=== PATIENT | male | born 1950 | race Caucasian/White ===

== ENCOUNTER 2020-05-12 12:13 | Emergency (ER) | payer OTHER ==
[2020-05-12] MEDS ORDERED: LIDOCAINE 1% MPF 30 ML VIAL ONE (12:38)
[2020-05-12] MEDS ORDERED: MIDAZOLAM HCL 2 MG/2 ML INJ ONE (13:06)
[2020-05-12] MEDS ORDERED: CEFAZOLIN/SWI 1gm 2 GM/20 ML SYR ONE (13:07)
[2020-05-12] MEDS ORDERED: HYDROMORPHONE HCL 1 MG/ML INJ ONE (13:07)
[2020-05-12] MEDS ORDERED: ETOMIDATE 20 MG/10 ML VIAL IV ONE (13:07)
[2020-05-12] MEDS ORDERED: ONDANSETRON 4 MG/2 ML VIAL ONE (13:07)
--- NOTE | 2020-05-12 13:09 | RAD REPORT ---
EXAM DESCRIPTION: RAD - Hand Right 3 View - 05/12/2020 1:02 pm CLINICAL HISTORY: Right hand pain status post injury FINDINGS: A nail lies within the soft tissues adjacent to first metacarpal and first proximal phalan x No fracture or dislocation is seen.
[2020-05-12 13:11] LABS: Basophils % 0.7 % (0-1.3); Hematocrit 36.2 % (39.6-49.0); Lymphocytes % 18.5 % (15.3-44.8); RBC Red Blood Cell Count 3.98 M/uL (4.33-5.43)
[2020-05-12 13:29] LABS: Bilirubin Total 0.5 mg/dL (0.2-1.0); Potassium 3.9 mmol/L (3.5-5.1); Protein, Total 7.3 g/dL (6.4-8.2)
[2020-05-12] MEDS ORDERED: TETANUS & DIPHTHERIA TOX,ADULT 0.5 ML VIAL ONE (13:30)
[2020-05-12] MEDS ORDERED: NA CHLORIDE 0.9% 1,000 ML ONE (13:30)
--- NOTE | 2020-05-12 13:47 | EDPHYS ---
Physician Documentation [facility] Name: Steven Woods Age: 70 yrs Sex: Male : 1950 Arrival Date: 05/12/2020 Time: 12:17 Bed 15 Private MD: ED Physician Aurelio Spence HPI: 05/12 13:03 This 70 yrs old Male presents to ER via Ambulatory with complaints of Nail in lucia hand. 13:03 The patient or guardian reports decreased range of motion, deformity, pain, a puncture lucia wound. The complaints affect the right hand diffusely. Context: The problem was sustained at home, at a nail gun dc into hand. Onset: The symptoms/episode began/occurred just prior to arrival. Modifying factors: The symptoms are alleviated by elevation, holding still, the symptoms are aggravated by movement, dependent position. Associated signs and symptoms: Pertinent positives: pain, none. Severity of symptoms: At their worst the symptoms were moderate, in the emergency department the symptoms are unchanged. The patient has not experienced similar symptoms in the past. Historical: - Allergies: 12:21 Codeine; ll1 - PMHx: 12:21 Diabetes - IDDM; Hypertension; ll1 - PSHx: 12:21 None; ll1 - Immunization history:: Flu vaccine is not up to date. - Social history:: Smoking status: Patient denies any tobacco usage or history of. - Family history:: not pertinent. ROS: 13:03 Constitutional: Negative for fever, chills, and weight loss, Eyes: Negative for injury, lucia pain, redness, and discharge, ENT: Negative for injury, pain, and discharge, Neck: Negative for injury, pain, and swelling, Cardiovascular: Negative for chest pain, palpitations, and edema, Respiratory: Negative for shortness of breath, cough, wheezing, and pleuritic chest pain, Abdomen/GI: Negative for abdominal pain, nausea, vomiting, diarrhea, and constipation, Back: Negative for injury and pain, : Negative for injury, bleeding, discharge, and swelling, Skin: Negative for injury, rash, and discoloration, Neuro: Negative for headache, weakness, numbness, tingling, and seizure, Psych: Negative for depression, anxiety, suicide ideation, homicidal ideation, and hallucinations, Allergy/Immunology: Negative for hives, rash, and allergies, Endocrine: Negative for neck swelling, polydipsia, polyuria, polyphagia, and marked weight changes, Hematologic/Lymphatic: Negative for swollen nodes, abnormal bleeding, and unusual bruising. 13:03 MS/extremity: Positive for decreased range of motion, deformity, pain, of the dorsal aspect of proximal phalanx of right thumb, palmar aspect of proximal phalanx of right thumb and Right first web space. Exam: 13:03 Constitutional: This is a well developed, well nourished patient who is awake, alert, lucia and in no acute distress. Head/Face: Normocephalic, atraumatic. Eyes: Pupils equal round and reactive to light, extra-ocular motions intact. Lids and lashes normal. Conjunctiva and sclera are non-icteric and not injected. Cornea within normal limits. Periorbital areas with no swelling, redness, or edema. ENT: Nares patent. No nasal discharge, no septal abnormalities noted. Tympanic membranes are normal and external auditory canals are clear. Oropharynx with no redness, swelling, or masses, exudates, or evidence of obstruction, uvula midline. Mucous membranes moist. Neck: Trachea midline, no thyromegaly or masses palpated, and no cervical lymphadenopathy. Supple, full range of motion without nuchal rigidity, or vertebral point tenderness. No Meningismus. Chest/axilla: Normal chest wall appearance and motion. Nontender with no deformity. No lesions are appreciated. Cardiovascular: Regular rate and rhythm with a normal S1 and S2. No gallops, murmurs, or rubs. Normal PMI, no JVD. No pulse deficits. Respiratory: Lungs have equal breath sounds bilaterally, clear to auscultation and percussion. No rales, rhonchi or wheezes noted. No increased work of breathing, no retractions or nasal flaring. Abdomen/GI: Soft, non-tender, with normal bowel sounds. No distension or tympany. No guarding or rebound. No evidence of tenderness throughout. Back: No spinal tenderness. No costovertebral tenderness. Full range of motion. Skin: Warm, dry with normal turgor. Normal color with no rashes, no lesions, and no evidence of cellulitis. Neuro: Awake and alert, GCS 15, oriented to person, place, time, and situation. Cranial nerves II-XII grossly intact. Motor strength 5/5 in all extremities. Sensory grossly intact. Cerebellar exam normal. Normal gait. Psych: Awake, alert, with orientation to person, place and time. Behavior, mood, and affect are within normal limits. 13:03 Musculoskeletal/extremity: Extremities: noted in the lateral aspect of right hand, palmar aspect of proximal phalanx of right thumb and Right first web space: decreased ROM, deformity, pain, ROM: limited active range of motion, limited passive range of motion, limited active range of motion due to pain, limited passive range of motion due to pain, Circulation is intact in all extremities. Sensation intact. Compartment Syndrome exam of affected extremity: is normal. DVT Exam: no swelling, negative Homans' sign noted on exam, no appreciated bluish discoloration, no erythema, no increased warmth, pain, tenderness. Vital Signs: 12:21 BP 125 / 87; Pulse 70; Resp 18; Temp 97.2; Pulse Ox 97% ; Weight 109.77 kg; Height 6 ll1 ft. 0 in. (182.88 cm); Pain 8/10; 14:09 BP 115 / 75; Pulse 54; Resp 14 S; Pulse Ox 100% on R/A; jd3 12:21 Body Mass Index 32.82 (109.77 kg, 182.88 cm) ll1 Procedures: 13:45 Foreign Body Removal: a nail, from the right right hand and dorsal aspect of proximal lucia phalanx of right thumb, by using a hemostat, incising to remove, using lidocaine 1% without epinephrine to anesthesize the area, Dressinx4s were used to dress the wound, The patient tolerated the removal well. MDM: 12:24 Patient medically screened. lucia 13:07 Differential diagnosis: open fracture. Data reviewed: vital signs, nurses notes, lab lucia test result(s), radiologic studies, plain films. Data interpreted: security monitor: rate is 70 beats/min, rhythm is regular, Pulse oximetry: on room air is 97 %. Test interpretation: by ED physician or midlevel provider: plain radiologic studies. Counseling: I had a detailed discussion with the patient and/or guardian regarding: the historical points, exam findings, and any diagnostic results supporting the discharge/admit diagnosis, lab results, radiology results. 05/12 12:45 Order name: CBC with Diff; Complete Time: 13:39 lucia 05/12 12:45 Order name: Comprehensive Metabolic Panel; Complete Time: 13:39 lucia 05/12 12:45 Order name: Hand Right 3 View XRAY; Complete Time: 13:39 lucia 05/12 13:24 Order name: Hand Right 3 View XRAY 05/12 12:47 Order name: NPO; Complete Time: 12:54 lucia 05/12 13:45 Order name: Wound Care; Complete Time: 14:29 lucia Administered Medications: 13:00 Drug: Dilaudid 1 mg Route: IVP; Site: left antecubital; hb 14:00 Follow up: Response: No adverse reaction; RASS: Alert and Calm (0) jd3 13:00 Drug: Zofran (Ondansetron) 4 mg Route: IVP; Site: left antecubital; hb 14:00 Follow up: Response: No adverse reaction jd3 13:00 Drug: Ancef 2 grams Route: IVPB; Infused Over: 30 mins; Site: left antecubital; hb 14:00 Follow up: Response: No adverse reaction; IV Status: Completed infusion jd3 13:16 Drug: Versed 2 mg Route: IVP; Site: left antecubital; jd3 14:00 Follow up: Response: No adverse reaction jd3 13:18 Drug: Versed 2 mg Route: IVP; Site: left antecubital; jd3 14:00 Follow up: Response: No adverse reaction jd3 13:32 Not Given (Physician Discretion): Etomidate 10 mg IVP once jd3 13:33 Not Given (Physician Discretion): Etomidate 10 mg IVP once; hold jd3 13:43 Drug: Tetanus-Diphtheria Toxoid Adult 0.5 ml {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 Exp: jd3 09/22/2022. Lot #: [id number]. } Route: IM; Site: right deltoid; 14:40 Follow up: Response: No adverse reaction jd3 13:58 Drug: Clindamycin 900 mg Route: IVPB; Infused Over: 30 mins; Site: left antecubital; jd3 14:48 Follow up: Response: No adverse reaction; IV Status: Completed infusion; IV Intake: [id number] 14:29 Drug: Neosporin Ointment 1 application Route: Topical; Site: affected area; jd3 Disposition: 05/12/20 13:46 Discharged to Home. Impression: Puncture wound with foreign body of right hand, Puncture wound without foreign body of right hand, Type 1 diabetes mellitus. - Condition is Stable. - Discharge Instructions: Laceration Care, Adult, Puncture Wound, Laceration Care, Adult, [id number], Puncture Wound, [id number]. - Prescriptions for Clindamycin HCl 300 mg Oral Capsule - take 1 capsule by ORAL route every 6 hours for 7 days; 28 capsule. Keflex 500 mg Oral Capsule - take 1 capsule by ORAL route every 6 hours for 10 days; 40 capsule. Tramadol 50 mg Oral Tablet - take 1 tablet by ORAL route every 8 hours as needed; 26 tablet. - Medication Reconciliation Form, Thank You Letter, Antibiotic Education, Prescription Opioid Use form. - Follow up: Private Physician; When: 2 - 3 days; Reason: Recheck today's complaints, Continuance of care, Re-evaluation by your physician. Follow up: Irma Vyas; When: 2 - 3 days; Reason: Recheck today's complaints, Re-evaluation by your physician. - Problem is new. - Symptoms have improved. Signatures: Dispatcher [employer] EDAurelio Bryan MD MD cha Baxter, Heather, RN RN hb Davies, Jonathon, RN RN jRebecca Thakkar RN RN ll1 Corrections: (The following items were deleted from the chart) 15:00 13:46 05/12/2020 13:46 Discharged to Home. Impression: Puncture wound with foreign body jd3 of right hand; Puncture wound without foreign body of right hand; Type 1 diabetes mellitus. Condition is Stable. Discharge Instructions: Laceration Care, Adult, Puncture Wound, Laceration Care, Adult, [id number], Puncture Wound, [id number]. Prescriptions for Clindamycin HCl 300 mg Oral Capsule - take 1 capsule by ORAL route every 6 hours for 7 days; 28 capsule, Keflex 500 mg Oral Capsule - take 1 capsule by ORAL route every 6 hours for 10 days; 40 capsule, Tramadol 50 mg Oral Tablet - take 1 tablet by ORAL route every 8 hours as needed; 26 tablet. and Forms are Medication Reconciliation Form, Thank You Letter, Antibiotic Education, Prescription Opioid Use. Follow up: Private Physician; When: 2 - 3 days; Reason: Recheck today's complaints, Continuance of care, Re-evaluation by your physician. Follow up: Irma Vyas; When: 2 - 3 days; Reason: Recheck today's complaints, Re-evaluation by your physician. Problem is new. Symptoms have improved. lucia
--- NOTE | 2020-05-12 13:47 | ER ---
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 ll1 Coronavirus screen: Client denies travel out of the [place] in the last 14 days. At this time, the client does not indicate any symptoms associated with coronavirus-19. Ebola Screen: Patient denies travel to an Ebola-affected area in the 21 days before illness onset. Initial Sepsis Screen: Does the patient meet any 2 criteria? No. Patient's initial sepsis screen is negative. Does the patient have a suspected source of infection? Yes: Skin breakdown/wound. Risk Assessment: Do you want to hurt yourself or someone else? Patient reports no desire to harm self or others. Onset of symptoms was May 12, 2020. 12:21 Method Of Arrival: Ambulatory ll1 12:21 Acuity: STAS 3 ll1 12:56 Acuity: STAS 2 hb Triage Assessment: 13:00 General: Appears in no apparent distress. uncomfortable, Behavior is calm, cooperative, jd3 appropriate for age. Historical: - Allergies: 12:21 Codeine; ll1 - PMHx: 12:21 Diabetes - IDDM; Hypertension; ll1 - PSHx: 12:21 None; ll1 - Immunization history:: Flu vaccine is not up to date. - Social history:: Smoking status: Patient denies any tobacco usage or history of. - Family history:: not pertinent. Screenin:48 Abuse screen: Denies threats or abuse. Nutritional screening: No deficits noted. jd3 Tuberculosis screening: No symptoms or risk factors identified. Fall Risk Ambulatory Aid- None/Bed Rest/Nurse Assist (0 pts). Gait- Normal/Bed Rest/Wheelchair (0 pts) Mental Status- Oriented to own ability (0 pts). Total Ronquillo Fall Scale indicates No Risk (0-24 pts). Assessment: 12:54 General: Appears in no apparent distress. uncomfortable, Behavior is calm, cooperative, jd3 appropriate for age. Pain: Complains of pain in right hand. Neuro: Level of Consciousness is awake, alert, obeys commands, Oriented to person, place, time, situation. Cardiovascular: Denies chest pain, Capillary refill < 3 seconds Patient's skin is warm and dry. Respiratory: Airway is patent Respiratory effort is even, unlabored, Respiratory pattern is regular, symmetrical, Denies cough, shortness of breath. GI: No signs and/or symptoms were reported involving the gastrointestinal system. : No signs and/or symptoms were reported regarding the genitourinary system. EENT: No signs and/or symptoms were reported regarding the EENT system. Derm: Skin is intact, Skin is dry, Skin is normal, Skin temperature is warm. Musculoskeletal: Circulation, motion, and sensation intact. Range of motion: intact in all extremities. Injury Description: Puncture sustained to right hand is through and through, nail. 13:16 Reassessment: Patient appears in no apparent distress at this time. Patient and/or jd3 family updated on plan of care and expected duration. Pain level reassessed. Patient is alert, oriented x 3, equal unlabored respirations, skin warm/dry/pink. conscious sedation started for FB removal, see flowsheet. 14:48 Reassessment: Patient appears in no apparent distress at this time. Patient and/or jd3 family updated on plan of care and expected duration. Pain level reassessed. Patient is alert, oriented x 3, equal unlabored respirations, skin warm/dry/pink. Patient states feeling better. Vital Signs: 12:21 BP 125 / 87; Pulse 70; Resp 18; Temp 97.2; Pulse Ox 97% ; Weight 109.77 kg; Height 6 ll1 ft. 0 in. (182.88 cm); Pain 8/10; 14:09 BP 115 / 75; Pulse 54; Resp 14 S; Pulse Ox 100% on R/A; jd3 12:21 Body Mass Index 32.82 (109.77 kg, 182.88 cm) 1 ED Course: 12:17 Patient arrived in ED. mr 12:22 Triage completed. ll1 12:22 Arm band placed on Patient placed in an exam room, on a stretcher. 1 12:24 Aurelio Spence MD is Attending Physician. [facility] 12:53 Inserted saline lock: 20 gauge in left antecubital area, using aseptic technique. jp3 12:54 Hemant De Luna, RN is Primary Nurse. jd3 13:02 Hand Right 3 View XRAY In Process Unspecified. EDMS 13:46 Irma Vyas MD is Referral Physician. [facility] 13:55 Hand Right 3 View XRAY In Process Unspecified. EDMS 14:43 Assist provider with foreign body removal of nail from right hand using Set up for jd3 procedure. Performed by Hemant De Luna RN Dressed with 4X4s, Patient tolerated well. 14:48 IV discontinued, intact, bleeding controlled, No redness/swelling at site. Pressure jd3 dressing applied. 14:59 Patient has correct armband on for positive identification. Bed in low position. Call jd3 light in reach. Side rails up X2. Adult w/ patient. monitoring engineer on. Pulse ox on. NIBP on. Administered Medications: 13:00 Drug: Dilaudid 1 mg Route: IVP; Site: left antecubital; hb 14:00 Follow up: Response: No adverse reaction; RASS: Alert and Calm (0) jd3 13:00 Drug: Zofran (Ondansetron) 4 mg Route: IVP; Site: left antecubital; hb 14:00 Follow up: Response: No adverse reaction jd3 13:00 Drug: Ancef 2 grams Route: IVPB; Infused Over: 30 mins; Site: left antecubital; hb 14:00 Follow up: Response: No adverse reaction; IV Status: Completed infusion jd3 13:16 Drug: Versed 2 mg Route: IVP; Site: left antecubital; jd3 14:00 Follow up: Response: No adverse reaction jd3 13:18 Drug: Versed 2 mg Route: IVP; Site: left antecubital; jd3 14:00 Follow up: Response: No adverse reaction jd3 13:32 Not Given (Physician Discretion): Etomidate 10 mg IVP once jd3 13:33 Not Given (Physician Discretion): Etomidate 10 mg IVP once; hold jd3 13:43 Drug: Tetanus-Diphtheria Toxoid Adult 0.5 ml {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 Exp: jd3 09/22/2022. Lot #: [id number]. } Route: IM; Site: right deltoid; 14:40 Follow up: Response: No adverse reaction jd3 13:58 Drug: Clindamycin 900 mg Route: IVPB; Infused Over: 30 mins; Site: left antecubital; jd3 14:48 Follow up: Response: No adverse reaction; IV Status: Completed infusion; IV Intake: [id number] 14:29 Drug: Neosporin Ointment 1 application Route: Topical; Site: affected area; jd3 Intake: 14:48 IV: 50ml; Total: 50ml. jd3 Outcome: 13:46 Discharge ordered by MD. myers 14:59 Discharged to home ambulatory, with family. jd3 14:59 Condition: stable 14:59 Discharge instructions given to patient, family, Instructed on discharge instructions, follow up and referral plans. medication usage, Demonstrated understanding of instructions, follow-up care, medications, Prescriptions given X 3. 15:00 Patient left the ED. jd3 Signatures: Dispatcher [employer] EDMS Aurelio Spence MD MD cha Rivera, Mary mr Baxter, Heather, RN RN hb Davies, Jonathon, RN RN Denilson Hua Lynsay, RN RN ll1
[2020-05-12] MEDS ORDERED: CLINDAMYCIN 900MG/D5W 900 MG/50 ML IVPB IV ONE (14:02)
--- NOTE | 2020-05-12 14:09 | RAD REPORT ---
EXAM DESCRIPTION: RAD - Hand Right 3 View - 05/12/2020 1:55 pm CLINICAL HISTORY: Right hand pain status post injury FINDINGS: The nail has been removed since a film earlier on the same date. Multiple tiny densities lie adjacent to the base of the first metacarpal probably avulsed bone fragme nts. Oblique lucency within the proximal aspect of the first metacarpal is the tract of the nail . Presuma katy a portion represents nondisplaced fracture
[2020-05-12 15:06] VITALS: TEMP 97.2
[2020-05-12 15:07] VITALS: BP 115/75; O2SAT 100
== END 2020-05-12 15:00 | disposition home or self-care (01) ==
LOC: ER 12:13
PROC: 0JCJ3ZZ Extirpation of Matter from Right Hand Subcutaneous Tissue and Fascia, Percutaneous Approach (ICD-10-PCS; principal; 2020-05-12)
DX: S61.441A Puncture wound with foreign body of right hand, initial encounter (principal); W29.4XXA Contact with nail gun, initial encounter; Y93.9 Activity, unspecified; Y92.009 Unspecified place in unspecified non-institutional (private) residence as the place of occurrence of the external cause; Z23 Encounter for immunization; Z88.5 Allergy status to narcotic agent; I10 Essential (primary) hypertension
CPT/HCPCS: 96365; 85025; 36415; 80053; 73130 ×2; 90471; 90714; 96375; 99284; 10120; J2250; J1170; J0690; J7030; J2405